=== PATIENT | female | born 1955 | race Caucasian/White ===

== ENCOUNTER 2018-12-29 12:45 | Emergency (ER) | payer MEDICAID ==
[~2018-12-29] VITALS: Ht 188 cm; Wt 82.7 kg
[2018-12-29 12:51] VITALS: BP 178/99; Ht 188 cm; Wt 82.7 kg
== END 2018-12-29 14:15 | disposition home or self-care (01) ==
LOC: D.ER 12:45
DX: Z71.1 Person with feared health complaint in whom no diagnosis is made (principal)